=== PATIENT | male | born 1935 | race Caucasian/White ===

== ENCOUNTER 2017-04-12 15:17 | Outpatient (CLI) | payer MEDICARE, OTHER ==
--- NOTE | 2017-04-12 20:44 | CT ---
HEAD CT WITHOUT CONTRAST: Date: 04-12-17 Comparison: 08-24-08 History: Fall, dizziness, posterior head trauma. Technique: Serial axial CT imaging at 4.8 mm intervals from vertex through the skull base without co ntrast. FINDINGS: Imaged paranasal sinuses and mastoid air cells well aerated. Atherosclerotic calcification of cavern ous carotid arteries noted. Diffuse hypodensity of the periventricular and deep white matter suggests significant small vessel d isease. No intracranial hemorrhage, midline shift, or mass effect. IMPRESSION: Small vessel disease. No intracranial hemorrhage or displaced calvarial fracture. POS: [facility]
== END 2017-04-12 15:18 | disposition home or self-care (01) ==
LOC: SCSCT 15:17
PROVIDERS: ATTEND Otolaryngology Plastic Surgery within the Head & Neck
DX: R42 Dizziness and giddiness (principal)
CPT/HCPCS: 70450

== ENCOUNTER 2017-06-05 13:41 | Emergency (ER) | payer MEDICARE, OTHER ==
[2017-06-05 14:36] LABS: #Basophils 0.1 thou/uL (0.0-0.2); #Eosinphils 0.4 thou/uL (0.0-0.7); #Lymphocytes 1.3 thou/uL (1.20-3.40); #Monocytes 0.8 thou/uL (0.11-0.59); #Neutrophils 7.3 thou/uL (1.40-6.50); %Basophils 0.8 % (0.0-1.0); %Lymphocytes 13.2 % (21.0-51.0); %Monocytes 8.4 % (0.0-10.0); Hematocrit 35.9 % (42.0-52.0); Mean Platelet Volume 6.3 fL (7.4-10.4); Red Blood Cell (RBC) Count 3.99 mill/uL (4.70-6.10)
[2017-06-05 14:52] LABS: ALT (SGPT) 14 U/L (8-55); AST (SGOT) 12 U/L (5-34); Alkaline Phosphatase 73 U/L (40-150); Anion Gap 15 mmol/L (10-20); BUN (Urea Nitrogen) 41 mg/dL (8.4-25.7); Bilirubin, Total 0.5 mg/dL (0.2-1.2); Calc. Creatinine Clearance 0 mL/min (70-130); Calcium 9.5 mg/dL (7.8-10.44); Carbon Dioxide 18 mmol/L (23-31); Chloride 110 mmol/L (98-107); Estimated GFR-MDRD 35; Globulin 3.1 g/dL (2.4-3.5); Lipase 27 U/L (8-78); Protein, Total 7.1 g/dL (5.8-8.1)
--- NOTE | 2017-06-05 15:51 | RAD ---
AP VIEW CHEST SUPINE AND UPRIGHT VIEWS OF ABDOMEN: Date: 06/05/17 HISTORY: Nausea, vomiting, and diarrhea for 3 days. FINDINGS: AP view of chest demonstrates the lungs to be well aerated. No evidence of active intrathoracic disea se is seen. No evidence of effusions, pneumonia, or pneumothorax seen. There is a rotator cuff repair screw in the right humerus. Supine and upright views of the abdomen demonstrate abdominal gas pattern to be nonspecific. No evide nce of obstruction or ileus seen. No dilated loops of bowel seen. No evidence of free intraperitoneal air seen. IMPRESSION: Unremarkable AP view chest and 2 views abdomen. POS: [facility]
[2017-06-05 16:00] LABS: Bilirubin Negative (Negative); Blood, Urine Negative (Negative); Glucose, Urine (Dipstick) Negative (Negative); Ketone, Urine Negative (Negative); Nitrite Negative (Negative); Protein, Urine (Dipstick) Negative (Neg-Trace); Urobilinogen 0.2 mg/dL (0.2-1.0)
== END 2017-06-05 16:41 | disposition home or self-care (01) ==
LOC: SCSER 13:41
DX: R19.7 Diarrhea, unspecified (principal); E11.9 Type 2 diabetes mellitus without complications
CPT/HCPCS: 74022; 80053; 81003; 83605; 83690; 85025; 96360; 96361

== ENCOUNTER 2018-11-28 13:54 | Inpatient (IN) | payer MEDICARE, OTHER ==
[2018-11-28] MEDS ORDERED: Adacel (T-DAP) 0.5 ML SYRINGE ONE (15:29)
--- NOTE | 2018-11-28 16:19 | CT ---
CT BRAIN WITHOUT CONTRAST: HISTORY:Fall, headache COMPARISON:04/12/2017 FINDINGS: There are foci of decreased attenuation in the periventricular white matter, consistent with chronic small vessel ischemic disease. There is a is small 3 mm focus of increased density in the anteromedial aspect of the left frontal lo be. No evidence of acute infarct, midline shift or abnormal extra-axial fluid collections is seen. The ve ntricular size is appropriate and the basilar cisterns are patent. The bony calvarium is intact. The visualized paranasal sinuses are well aerated.Small amount of fluid is seen in the mastoid air ce lls. IMPRESSION: Tiny acute hemorrhagic contusion in the left frontal lobe. Discussed over the telephone with ER physician Dr. Rashel Bolton at 4:15 PM.
[2018-11-28] MEDS ORDERED: Ondansetron PF 4 MG/2 ML Vial IVP PRN (16:30)
[2018-11-28] MEDS ORDERED: Acetaminophen 325 MG TAB PO PRN (16:30)
[2018-11-28] MEDS ORDERED: Ondansetron ODT 4 MG TAB SL PRN (16:30)
[2018-11-28] MEDS ORDERED: Bacitracin Zinc 1 Packet ONE (16:49)
[2018-11-28 16:54] LABS: #Basophils 0.1 thou/uL (0.0-0.2); #Eosinphils 0.3 thou/uL (0.0-0.7); #Lymphocytes 1.4 thou/uL (1.20-3.40); #Monocytes 0.5 thou/uL (0.11-0.59); #Neutrophils 3.4 thou/uL (1.40-6.50); %Lymphocytes 24.8 % (21.0-51.0); %Monocytes 8.5 % (0.0-10.0); %Neutrophils 60.7 % (42.0-75.0); Hemoglobin 11.4 g/dL (14.0-18.0); Mean Corpuscular HGB CONC 31.5 g/dL (32.0-36.0); Mean Corpuscular Hemoglobin 27.8 pg (27.0-31.0); Mean Corpuscular Volume 88.4 fL (78.0-98.0); Mean Platelet Volume 6.3 fL (7.4-10.4); Platelet Count 227 thou/uL (130-400); RBC Distribution Width 15.6 % (11.5-14.5); Red Blood Cell (RBC) Count 4.11 mill/uL (4.70-6.10); White Blood Cell (WBC) Count 5.6 thou/uL (4.8-10.8)
[2018-11-28 17:00] LABS: Prothrombin Time 13.2 SEC (12.0-14.7)
[2018-11-28 17:10] LABS: ALT (SGPT) 16 U/L (8-55); AST (SGOT) 12 U/L (5-34); Albumin 3.8 g/dL (3.4-4.8); Alkaline Phosphatase 66 U/L (40-150); Anion Gap 13 mmol/L (10-20); BUN (Urea Nitrogen) 22 mg/dL (8.4-25.7); Bilirubin, Total 0.6 mg/dL (0.2-1.2); Calc. Creatinine Clearance 0 mL/min (70-130); Calcium 10.1 mg/dL (7.8-10.44); Carbon Dioxide 30 mmol/L (23-31); Chloride 101 mmol/L (98-107); Estimated GFR-MDRD 42; Globulin 3.1 g/dL (2.4-3.5); Glucose 132 mg/dL (83-110); Potassium 3.9 mmol/L (3.5-5.1); Protein, Total 6.9 g/dL (5.8-8.1); Sodium 140 mmol/L (136-145)
--- NOTE | 2018-11-28 17:46 | RAD ---
SACRUM AND COCCYX: 11/28/18 HISTORY: Fall. SI joints are symmetric. No diastasis of the symphysis. I do not appreciate any definite sacral frac ture. There is slight displacement of the lower coccygeal segment but this could be a developmental finding. IMPRESSION: Slight displacement of one of the lower coccygeal segments. This could be a developmental or longstan ding process. Clinical correlation as to whether patient specifically has pain in the region of the t ip of the coccyx to suggest an acute injury. POS: [facility]
[2018-11-28 18:53] VITALS: BMI 33.6
[2018-11-28] MEDS ORDERED: hydrALAZINE 20 MG/ML VIAL SLOW IVP PRN (19:53)
[2018-11-28] MEDS ORDERED: Dextrose 5% in Water 1,000 ML IV PRN (19:53)
[2018-11-28] MEDS ORDERED: Dextrose 50% Abboject 50 ML SYRINGE SLOW IVP PRN (19:53)
[2018-11-28] MEDS ORDERED: Sodium Chloride 0.9% 1,000 ML IV SCH (20:00)
[2018-11-28] MEDS ORDERED: Prevnar 13-Val Conj/PF 0.5 ML SYRINGE IM ONE (20:00)
[2018-11-28] MEDS ORDERED: HumaLOG 300 UNITS/3 ML VIAL SC PRN (20:01)
[2018-11-28] MEDS ORDERED: Ezetimibe 10 MG TAB PO SCH (22:15)
--- NOTE | 2018-11-29 01:48 | HP ---
TRAUMA SURGEON: Dr. Contreras. CONSULTING PHYSICIAN: Dr. Betancourt of Neurosurgery. HISTORY OF PRESENT ILLNESS: The patient is an 83-year-old male who presented to [facility] Emergency Room after a mechanical fall while he was stepping outside of his family member's home. The patient reports no loss of consciousness and he is not taking any anticoagulation. GCS is 15 and at baseline. The patient said that he hit the back of his head when he fell, but remembers the entire incident. He initially went to the emergency department because he had an avulsion laceration to the 4th digit of his left hand, so he went to get it sutured. On evaluation by the emergency room physician there, a CT scan of the brain was completed, which demonstrated a left frontal contusion. The patient was transferred to [facility] and was consulted, who recommended close monitoring and followup CT in the morning. On my evaluation, the patient had no complaints and was alert and oriented x3. REVIEW OF SYSTEMS: All additional 10-point review of systems negative except as indicated above. PAST MEDICAL HISTORY: Hypertension, diabetes, melanoma of the right eye. The patient is a poor historian. PAST SURGICAL HISTORY: Left ankle surgery and eye surgery for melanoma. SOCIAL HISTORY: The patient reports he is a previous smoker. He drinks occasionally and he denies any drug use. He does live with his and is independent. MEDICATIONS: The patient is a poor historian and cannot remember which [facility] his gets his medications from. He does report taking glipizide and aspirin and other medications. We will follow up [facility] with his when she comes to visit him. ALLERGIES: NO KNOWN DRUG ALLERGIES. PHYSICAL EXAMINATION: VITAL SIGNS: Temperature 97.6, pulse 69, respirations 15, oxygen saturation 93 % on room air, blood pressure 167/97. Airway is intact. Adequate breath sounds bilaterally. 2+ pulses in the bilateral radials, femorals, and DPs. GCS is 15. Gross motor and sensation are intact. No lacerations, bruising, or external bleeding. Small scratch to his left forehead, which the patient said is from the day previous when a tree branch accidentally hit him in the head. He did not have any significant trauma yesterday. SECONDARY SURVEY: HEAD: Normocephalic and atraumatic. No gross palpable skull deformities or tenderness. EYES: Pupils 3 to 2 equal, round, reactive to light bilaterally. ENT: No hemotympanum. No epistaxis. No septal hematoma. Midface stable to manipulation. No blood in the oropharynx. Dentition is intact. No anterior neck injury/crepitus/tenderness. C-SPINE: No step-offs or deformities or tenderness to palpation. C-collar not in place. CHEST: Nontender. No deformities. No abrasions or ecchymosis. Equal chest movement. ABDOMEN: Soft, nontender, nondistended. PELVIS: Stable to palpation. RECTAL: Deferred. GENITOURINARY: Deferred. EXTREMITIES: No gross palpable deformities or tenderness. No ecchymosis. 2+ pulses in the bilateral radials, femorals, and DPs. Gross motor and sensation are intact. BACK/SPINE: No step-offs or deformities. No tenderness to palpation of the thoracic or lumbar spine. No abrasions or ecchymosis. NEUROLOGIC: 5/5 strength in the bilateral vocational technical education teacher, plantar flexion, and dorsiflexion. Gross normal sensation x4 extremities. GCS is 15. LABORATORY FINDINGS: White count 5.6, hemoglobin 11.4, hematocrit 36.3, platelets 227. INR 1.0. Sodium 140, potassium 3.9, chloride 101, carbon dioxide 30, BUN 22, creatinine 1.58, glucose 132. DIAGNOSTIC FINDINGS: CT of the brain demonstrates tiny acute hemorrhagic contusion in the left frontal lobe. X-ray of the sacrum and coccyx demonstrates slight displacement of one of the lower coccyx segments. This could be a developmental or long-standing process. Clinical correlation as to whether the patient specifically has pain in the region of the tip of the coccyx to suggest an acute injury. ASSESSMENT: 1. Status post mechanical fall from standing. 2. Left frontal lobe contusion. 3. Avulsion laceration to the left 4th digit, status post repair. PLAN: The patient will be admitted to the [facility] with q.2 hours neuro checks. He will be n.p.o. with normal saline at 70 an hour. Pain control with Tylenol p.r.n. Goal systolic blood pressure is less than 160. Elevate the head of bed 30 degrees. The patient will receive a repeat CT of the brain tomorrow morning at 5:00 a.m. and we will follow up with Neurosurgery for further recommendations. He will work with Physical Therapy tomorrow morning as well. If the patient's mentation stays like this and at baseline, he will likely be able to be discharged home tomorrow. This patient was discussed with Dr. Contreras before this dictation. Job ID: [id number] MTDD
--- NOTE | 2018-11-29 04:20 | CON ---
DATE OF CONSULTATION: This is Deyanira Wang PA-C dictating a report for Ramakrishna Betancourt MD. HISTORY OF PRESENT ILLNESS: The patient is an 83-year-old male, who presented to the ER for evaluation following a mechanical fall. The patient reports that he was attempting to go through a screen door while pulling a small wagon when he became tangled with his feet causing a fall onto his bottom and then hitting his head. The patient came to [facility] Emergency Department for evaluation. Noncontrast CT head was done, which was notable for a tiny left frontal contusional injury. He also suffered a left ring finger laceration and was complaining of tailbone pain. Plain x-rays of the sacrum and coccyx revealed a small deformity along the tip of the coccyx suspicious for old versus new fracture. The patient had a GCS of 15. Neurosurgery was consulted for further evaluation and management of his intracranial injury. He is not to take aspirin or any anticoagulants. His platelets and coags were normal. PAST MEDICAL HISTORY: Hypertension, diabetes. PAST SURGICAL HISTORY: Left thumb, right ankle, right shoulder. SOCIAL HISTORY: The patient lives at home. He does not smoke, drink, or use any drugs. ALLERGIES: HE HAS NO KNOWN DRUG ALLERGIES. REVIEW OF SYSTEMS: Complaining of pain in the sacrum and coccyx. No other complaints at this time. PHYSICAL EXAMINATION: CONSTITUTIONAL: Awake, alert, in no acute distress. VITAL SIGNS: Stable. GCS 15. Head: Small abrasion of the left forehead. EYES: PERRLA. Extraocular movements intact. ENT: Oral mucosa is pink, intact and moist. No dental injury. NECK: Nontender to palpation. Free active range of motion. No meningismus or nuchal rigidity. RESPIRATORY: Symmetric chest expansion. No evidence of dyspnea. CARDIOVASCULAR: Regular rate and rhythm. MUSCULOSKELETAL: Free active range of motion of all extremities. No focal motor weakness. He has a left ring finger laceration, recently repaired by the ER. NEUROLOGIC: A and O x4, no focal neurological deficits are appreciated. BACK: Tender to palpation over the coccyx. ASSESSMENT AND PLAN: This is an 83-year-old male with a small left frontal contusional injury following a mechanical fall. We will plan to admit the [facility], where he can be monitored closely with frequent neuro checks. Head of the bed will be elevated to 30 degrees. Systolic blood pressure should be monitored closely with a goal of less than 150. The patient is not given any anticoagulants. We will plan to repeat his a.m. head CT. Trauma is assisting with management of this patient. Discussed with Dr. Betancourt who is in agreement. Job ID: [id number]
[2018-11-29 04:26] VITALS: TEMP 97.6
--- NOTE | 2018-11-29 06:34 | CT ---
CT HEAD NONCONTRAST: INDICATIONS: Traumatic brain injury. Followup. FINDINGS: Faint hyperdensity with slight surrounding edema remains at the high left frontal convexity, medially . There is diffuse white matter hypoattenuation, indicating microvascular ischemic disease. No mass effect or midline shift. The exam is otherwise stable. IMPRESSION: Stable punctate hyperdensity of the high left frontal lobe with mild surrounding hypoattenuation. As previously mentioned, in the setting of injury, this could relate to contusion, although the possibi lity of an underlying parenchymal, or vascular lesion with surrounding edema is also a consideration. If there are no contraindications, followup with precontrast and postcontrast brain MRI is warrante d to further evaluate. CODE T POS: [facility]
[2018-11-29 06:43] LABS: #Eosinphils 0.4 thou/uL (0.0-0.7); #Lymphocytes 1.2 thou/uL (1.20-3.40); #Monocytes 0.5 thou/uL (0.11-0.59); #Neutrophils 4.3 thou/uL (1.40-6.50); %Basophils 0.6 % (0.0-1.0); %Eosinophils 5.7 % (0.0-10.0); %Lymphocytes 18.3 % (21.0-51.0); %Monocytes 7.9 % (0.0-10.0); %Neutrophils 67.5 % (42.0-75.0); Mean Corpuscular HGB CONC 32.2 g/dL (32.0-36.0); Platelet Count 222 thou/uL (130-400); RBC Distribution Width 14.7 % (11.5-14.5); White Blood Cell (WBC) Count 6.3 thou/uL (4.8-10.8)
[2018-11-29 07:03] LABS: Anion Gap 10 mmol/L (10-20); BUN (Urea Nitrogen) 19 mg/dL (8.4-25.7); Calc. Creatinine Clearance 65 mL/min (70-130); Calcium 9.4 mg/dL (7.8-10.44); Carbon Dioxide 31 mmol/L (23-31); Chloride 102 mmol/L (98-107); Estimated GFR-MDRD 48; Glucose 121 mg/dL (83-110); Magnesium 1.5 mg/dL (1.6-2.6); Phosphorus 3.3 mg/dL (2.3-4.7); Potassium 3.9 mmol/L (3.5-5.1); Sodium 139 mmol/L (136-145)
[2018-11-29] MEDS ORDERED: Magnesium 2 GM/50 ML 2 GM in Premix Bag 1 BAG IVPB SCH (08:45)
[2018-11-29] MEDS ORDERED: Famotidine 20 MG TAB PO SCH (09:00)
[2018-11-29] MEDS ORDERED: Losartan 25 MG TAB PO SCH (09:00)
[2018-11-29] MEDS ORDERED: Folic Acid 1 MG TAB PO SCH (09:00)
[2018-11-29] MEDS ORDERED: Fish Oil 1,000 MG CAP PO SCH (09:00)
[2018-11-29] MEDS ORDERED: Amlodipine 5 MG TAB PO SCH (09:00)
[2018-11-29] MEDS ORDERED: TURMERIC ROOT EXTRACT 500 MG PO SCH (09:00)
[2018-11-29 10:32] VITALS: BP 143/79
--- NOTE | 2018-11-29 13:06 | PRG ---
DATE OF SERVICE: 11/29/2018 SUBJECTIVE: The patient is seen and examined. I agree with Deyanira Wang's evaluation. The patient is an 83-year-old male who fell. He is currently alert, appropriate, and nonfocal. He had been on aspirin. His lab studies were normal. IMAGING STUDIES: Head CT reveals a tiny left frontal hyperdensity likely to be a contusional injury. This is stable on followup CT. IMPRESSION AND PLAN: The patient can be mobilized to dismissal. I recommend that he hold his aspirin for 2 weeks. No specific plans for neurosurgical followup. Discussed with the patient and his . Job ID: [id number]
[2018-11-29] MEDS ORDERED: Ezetimibe 10 MG TAB PO SCH (21:00)
--- NOTE | 2018-11-30 04:37 | DIS ---
DATE OF ADMISSION: 11/28/2018 DATE OF DISCHARGE: 11/29/2018 This is Malik De La Vega PA-C dictating a report for Sahil Cnotreras DO. ADMITTING SERVICES: Trauma. DISCHARGING PHYSICIAN: Sahil Contreras DO CONSULTING PHYSICIAN: Dr. Betancourt with Neurosurgery. ADMITTING DIAGNOSES: 1. Mechanical fall from standing. 2. Left frontal lobe contusion. 3. Avulsion laceration of the left 4th digit, status post repair. DISCHARGING DIAGNOSES: 1. Mechanical fall from standing. 2. Left frontal lobe contusion. 3. Avulsion laceration of the left 4th digit, status post repair. PHYSICAL EXAMINATION: On the date of discharge; VITAL SIGNS: Temperature is 97.6, blood pressure 145/78, heart rate is 70, respiratory rate is 22, saturating 94% on room air. GENERAL: An 83-year-old male, sitting up in bed, in no acute distress. HEENT: Normocephalic, atraumatic. Trachea is midline. No JVD is appreciated. RESPIRATORY: Equal rise and fall, bilateral breath sounds. Clear to auscultation in upper and lower lobes bilaterally. CARDIOVASCULAR: Regular rate and rhythm. No murmur. No edema. Strong pulses. ABDOMEN: Soft and nontender. PELVIS: Stable. MUSCULOSKELETAL: Moves extremities. Does have a primary closure of the laceration to the hand. SKIN: [place], warm, and dry. NEUROLOGIC: Alert and oriented to person, place, time, and event. No gross deficits are appreciated. LABORATORY DATA: Diagnostic criteria from today, white blood cell count is 6.3, platelets of 222, hemoglobin and hematocrit 11.0 and 34.2 respectively. Glucose is 152. Sodium is 139, potassium 3.9, chloride is 102, CO2 is 31, BUN is 19, creatinine 1.42, glucose 121, mag is 1.5, phos is 3.3, and calcium 9.4. HOSPITAL COURSE: Mr. Harding was admitted to the [facility] for q.2 hours neuro checks secondary to the fall. He sustained a mechanical fall and primary repair of his laceration. Mental status was preserved. He had no loss of consciousness, but there was a small frontal contusion appreciated. Repeat head CT, no gross changes. There is concern that he may need an MRI of the patient and he refuses MRI and does not want this. Neurosurgery did not believe that he needed an MRI. They recommend aspirin for 2 weeks and then he can resume. There is no need of followup with him given no changes on his CT scan and no neurologic deficits. The patient will follow up with his primary care within a week. This was explained to him. On the date of discharge, the patient is tolerating a diet. He is ambulatory. He has no distress. He has no headache. Feels well and wants to be discharged. The patient will be discharged home. He can follow up with his primary care. The patient was given strict return precautions. He verbalized understanding of the same. All these were discussed with his at the bedside including holding aspirin. He will have his sutures removed either in the trauma clinic or PCP in 7 days. Verbalized understanding of the same. Given return precautions for signs of infection. Diet will be home routine. Greater than 30 minutes was taken in discharge planning of this patient. Job ID: [id number]
== END 2018-11-29 13:49 | disposition home or self-care (01) | DRG 87 ==
LOC: SCSER 13:54 → IMCU/EMU 18:32
PROVIDERS: ADMIT Surgery; ATTEND Surgery
PROC: 0HQGXZZ Repair Left Hand Skin, External Approach (ICD-10-PCS; principal; 2018-11-28)
DX: S06.2X0A Diffuse traumatic brain injury without loss of consciousness, initial encounter (principal); W18.39XA Other fall on same level, initial encounter; S61.215A Laceration without foreign body of left ring finger without damage to nail, initial encounter; E11.9 Type 2 diabetes mellitus without complications; I10 Essential (primary) hypertension; Z98.890 Other specified postprocedural states; Y92.009 Unspecified place in unspecified non-institutional (private) residence as the place of occurrence of the external cause; Y93.89 Activity, other specified; Z85.820 Personal history of malignant melanoma of skin; Z87.891 Personal history of nicotine dependence
CPT/HCPCS: 36415; 36416; 70450; 72220; 80048; 80053; 83735; 84100; 85025; 85610; 85730; 90715; J3475

== ENCOUNTER 2021-03-14 11:51 | Day surgery (SDC) | payer MEDICARE ==
[2021-03-14] MEDS ORDERED: Sodium Chloride 0.9% 20 ML ONE (12:00)
[2021-03-14] MEDS ORDERED: Acetaminophen 500 MG TAB PO SCH (12:15)
[2021-03-14] MEDS ORDERED: diphenhydrAMINE 25 MG CAP PO SCH (12:15)
[2021-03-14 14:35] VITALS: BP 127/79; TEMP 97.4
== END 2021-03-14 14:37 | disposition home or self-care (01) ==
LOC: ONC/OP 11:51
PROVIDERS: ATTEND Internal Medicine Hematology & Oncology
PROC: 30233N1 Transfusion of Nonautologous Red Blood Cells into Peripheral Vein, Percutaneous Approach (ICD-10-PCS; principal; 2021-03-14)
DX: D64.9 Anemia, unspecified (principal); D69.6 Thrombocytopenia, unspecified
CPT/HCPCS: 36415; 36430; 82728; 83540; 83550; 86850; 86900; 86901; P9016; Q0163; U0003; U0005

== ENCOUNTER 2021-03-14 15:26 | Outpatient (CLI) | payer MEDICARE, OTHER ==
[2021-03-15 00:54] LABS: SARS-CoV-2 PCR by NAA Not Detected (NotDetected)
== END 2021-03-14 15:27 | disposition home or self-care (01) ==
LOC: LABBT 15:26
PROVIDERS: ATTEND Urology
DX: Z01.812 Encounter for preprocedural laboratory examination (principal); Z12.5 Encounter for screening for malignant neoplasm of prostate; N40.1 Benign prostatic hyperplasia with lower urinary tract symptoms; R35.0 Frequency of micturition; E11.9 Type 2 diabetes mellitus without complications; N52.9 Male erectile dysfunction, unspecified; R42 Dizziness and giddiness; R60.0 Localized edema; Z20.822 Contact with and (suspected) exposure to COVID-19
CPT/HCPCS: U0003; U0005

== ENCOUNTER 2021-03-19 07:27 | Day surgery (SDC) | payer MEDICARE, OTHER ==
[2021-03-18 09:07] VITALS: BMI 31.6
[2021-03-19] MEDS ORDERED: Lidocaine 1% PF 5 ML VIAL ONE (09:07)
[2021-03-19] MEDS ORDERED: PROPOFOL 200 MG/20 ML VIAL ONE (09:07)
== END 2021-03-19 11:30 | disposition home or self-care (01) ==
LOC: SDC 07:27
PROVIDERS: ATTEND Internal Medicine
PROC: 0DB78ZX Excision of Stomach, Pylorus, Via Natural or Artificial Opening Endoscopic, Diagnostic (ICD-10-PCS; principal; 2021-03-19)
PROC: 0W3P8ZZ Control Bleeding in Gastrointestinal Tract, Via Natural or Artificial Opening Endoscopic (ICD-10-PCS; 2021-03-19)
PROC: 0DJD8ZZ Inspection of Lower Intestinal Tract, Via Natural or Artificial Opening Endoscopic (ICD-10-PCS; 2021-03-19)
DX: K31.811 Angiodysplasia of stomach and duodenum with bleeding (principal); D50.0 Iron deficiency anemia secondary to blood loss (chronic); K29.50 Unspecified chronic gastritis without bleeding; B96.81 Helicobacter pylori [H. pylori] as the cause of diseases classified elsewhere; K31.7 Polyp of stomach and duodenum; K31.A11 Gastric intestinal metaplasia without dysplasia, involving the antrum; K63.5 Polyp of colon; K57.30 Diverticulosis of large intestine without perforation or abscess without bleeding; K64.8 Other hemorrhoids; K64.4 Residual hemorrhoidal skin tags; E11.9 Type 2 diabetes mellitus without complications; I10 Essential (primary) hypertension; E66.9 Obesity, unspecified; Z68.31 Body mass index [BMI] 31.0-31.9, adult; Z87.891 Personal history of nicotine dependence; Z79.02 Long term (current) use of antithrombotics/antiplatelets; Z79.82 Long term (current) use of aspirin; Z79.84 Long term (current) use of oral hypoglycemic drugs; Z79.899 Other long term (current) drug therapy; Z95.5 Presence of coronary angioplasty implant and graft
CPT/HCPCS: 43239; 43255; 45378; J1610; 88305; 88312; J2704

== ENCOUNTER 2021-08-05 09:27 | Day surgery (SDC) | payer MEDICARE, OTHER ==
[2021-08-05] MEDS ORDERED: Acetaminophen 500 MG TAB ONE (09:39)
[2021-08-05] MEDS ORDERED: Sodium Chloride 0.9% 10 ML ONE ×2 (09:39)
[2021-08-05] MEDS ORDERED: diphenhydrAMINE 25 MG CAP ONE (09:39)
[2021-08-05] MEDS ORDERED: cloNIDine 0.1 MG TAB ONE ×2 (11:57)
[2021-08-05] MEDS ORDERED: cloNIDine 0.2 MG TAB PO PRN (12:04)
[2021-08-05] MEDS ORDERED: cloNIDine 0.2 MG TAB PO SCH (12:15)
[2021-08-05 13:45] VITALS: BP 139/74; TEMP 97.9
== END 2021-08-05 14:27 | disposition home or self-care (01) ==
LOC: ONC/OP 09:27
PROVIDERS: ATTEND Internal Medicine Hematology & Oncology
PROC: 30233N1 Transfusion of Nonautologous Red Blood Cells into Peripheral Vein, Percutaneous Approach (ICD-10-PCS; principal; 2021-08-05)
DX: D64.9 Anemia, unspecified (principal); D69.6 Thrombocytopenia, unspecified
CPT/HCPCS: 36430; 86850; 86900; 86901; P9016

== ENCOUNTER 2023-11-29 14:52 | Outpatient (CLI) | payer MEDICARE, BC | END 2023-11-29 14:53 | disposition home or self-care (01) | LOC: ULT 14:52 | PROVIDERS: ATTEND Otolaryngology | DX: E04.1 Nontoxic single thyroid nodule (principal) | CPT/HCPCS: 76536 ==